=== PATIENT | male | born 1980 | race Caucasian/White ===

== ENCOUNTER 2019-12-06 12:11 | Emergency (ER) | payer SELFPAY ==
[~2019-12-06] VITALS: Ht 177 cm; Wt 78.6 kg
--- NOTE | 2019-12-06 13:19 | ED GI ---
General Chief Complaint: Rect Problems Stated Complaint: RECTAL BLEEDING-HEMORRHOIDS Nursing Triage Note: COMPLAINS OF HEMORRHOIDS X1 YEAR BUT IS NOW HAVING BLOOD WITH EACH BM. COMPLAINS OF PAIN WITH HE HEMORRHOIDS. HAS NOT TAKEN ANYTHING FOR THE PAIN. Sepsis Screen: No Definite Risk Source of Information: Patient Exam Limitations: No Limitations History of Present Illness Date Seen by Provider: Dec 06, 2019 Time Seen by Provider: 12:26 Initial Comments This 39-year-old gentleman presents to the emergency room with complaints of rectal bleeding. Anal irritation. He believes he has hemorrhoids. There is a masslike structure that causes him discomfort when he wipes. He has had streaking with bowel movements and pain with bowel movements for about a year. Symptoms worsened today and he had a significant amount of blood in his underwear. He came to the emergency room at the urging of his employer. He has not yet had a medical evaluation for this problem. He denies abdominal pain. Allergies and Home Medications Allergies Coded Allergies: No Known Drug Allergies (Unverified , 12/06/19) Home Medications Docusate Sodium 100 Mg Capsule, 100 MG PO BID Prescribed by: JAN RAMÍREZ on 12/06/19 1339 Hydrocortisone 30 Gm Cream..g., 30 GM RC QID Prescribed by: JAN RAMÍREZ on 12/06/19 1339 Hydrocortisone Acetate 25 Mg Supp.rect, 25 MG RC QID Prescribed by: JAN RAMÍREZ on 12/06/19 1339 Patient Home Medication List Home Medication List Reviewed: Yes Review of Systems Review of Systems Constitutional: no symptoms reported EENTM: No Symptoms Reported Respiratory: No Symptoms Reported Cardiovascular: No Symptoms Reported Gastrointestinal: See HPI Genitourinary: No Symptoms Reported Musculoskeletal: no symptoms reported Skin: no symptoms reported Psychiatric/Neurological: No Symptoms Reported Endocrine: No Symptoms Reported Hematologic/Lymphatic: No Symptoms Reported Past Tdzwhwv-Aacibt-Diwccl Hx Past Med/Social Hx: Reviewed Nursing Past Med/Soc Hx Patient Social History Alcohol Use: Denies Use Recreational Drug Use: No Smoking Status: Current Everyday Smoker Recent Foreign Travel: No Contact w/Someone Who Travel: No Recent Infectious Disease Expo: No Past Medical History Surgeries: Yes (DENTAL) Respiratory: No Cardiac: No Neurological: No Genitourinary: No Gastrointestinal: No Musculoskeletal: No Endocrine: No HEENT: No Cancer: No Psychosocial: No Integumentary: No Physical Exam Vital Signs Vital Signs - First Documented 12/06/19 12:15 Temp 37.0 Pulse 83 Resp 16 B/P (MAP) 144/95 (111) Pulse Ox 99 O2 Delivery Room Air Capillary Refill : Less Than 3 Seconds Height/Weight/BMI Height: '" Weight: lbs. oz. kg; 25.00 BMI Method: General Appearance: WD/WN, no apparent distress HEENT: normal ENT inspection Neck: normal inspection Respiratory: lungs clear, normal breath sounds, no respiratory distress Cardiovascular: regular rate, rhythm, no edema, no murmur Gastrointestinal: normal bowel sounds, non tender, soft Rectal: hemorrhoids, other (circumferential edema around the anus with a large central mass, possibly hemorrhoid, possibly thrombosed. 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 Dr. Chavez was consulted and will present to the ER to personally evaluate the patient. Progress Note #2: Progress Note Dr. Chavez evaluated the patient and suspected prolapsed internal hemorrhoid. He was able to manually reduce the hemorrhoid. This improved pain for the patient. We discussed treatment plan which will likely involve surgery after calming down the acute inflammatory stage. Departure Impression Primary Impression: Prolapsed internal hemorrhoids Additional Impression: Rectal bleeding Disposition: 01 HOME, SELF-CARE Condition: Improved Departure-Patient Inst. Decision time for Depature: 13:25 Referrals: ABDIRAHMAN CHAVEZ DO NO,LOCAL PHYSICIAN (PCP) Primary Care Physician Patient Instructions: Hemorrhoids Add. Discharge Instructions: Keep your stool soft by drinking plenty of clear liquids and eating a high fiber diet. You may also use the stool softeners as prescribed. Reduce the hemorrhoids when they prolapse. Use the hydrocortisone cream or suppositories 4 times a day to reduce inflammation. You may use the lidocaine jelly for topical pain relief. You may also use Tylenol (acetaminophen) up to 1000 mg every 6 hours as needed and ibuprofen up to 600 mg every 6 hours as needed. Return to the emergency room if you have worsening symptoms despite treatment or if you develop new symptoms such as fever. Contact Dr. Chavez's office to schedule an appointment. Please call today and inform them Dr. Chavez instructed you to be seen within 1-2 weeks. All discharge instructions reviewed with patient and/or family. Voiced understanding. Scripts Docusate Sodium (Colace) 100 Mg Capsule 100 MG PO BID, #30 CAP Prov: JAN LEE MD 12/06/19 Hydrocortisone Acetate (Anusol-Hc) 25 Mg Supp.rect 25 MG RC QID, #30 SUPP.RECT Prov: JAN LEE MD 12/06/19 Hydrocortisone (Anusol-Hc) 30 Gm Cream..g. 30 GM RC QID, #1 TUBE 3 Refills Prov: JAN LEE MD 12/06/19 Copy Copies To 1: ABDIRAHMAN CHAVEZ JOSHUA T MD Dec 06, 2019 13:19
--- NOTE | 2019-12-06 13:25 | NUR ---
DR MORALES HERE TO SEE PT.
[2019-12-06] MEDS ORDERED: HYDR30CR71 RC (13:39)
[2019-12-06] MEDS ORDERED: DOCU-143 PO (13:39)
[2019-12-06] MEDS ORDERED: HYDR25SU28 RC (13:39)
[2019-12-06 13:50] VITALS: BP 139/92
--- NOTE | 2019-12-07 22:16 | Consultation - Surgery ---
History of Present Illness History of Present Illness Patient Consulted On(abram/time) 12/06/19 13:31 Date Seen by Provider: Dec 06, 2019 Time Seen by Provider: 13:31 History of Present Illness Consult requested by Dr. Urbano for hemorrhoids, evaluated in ER. Patient is a 39 year old male who has had hemorrhoid issues for about a year. Will have bleeding off and on, now pretty regularly. Today increasing pain in rectal area and bleeding that has soaked through clothing. Pain usually improves when reduced. Bowel movements worsens pain/hemorrhoid. Patient has not has any type of evaluation for them before. Patient pain moderate to severe. Bright red bleeding. No abdominal pain. Denies n/v fever sweats chills shortness of breath or chest pain. Allergies and Home Medications Allergies Coded Allergies: No Known Drug Allergies (Unverified , 12/06/19) Home Medications Docusate Sodium 100 Mg Capsule, 100 MG PO BID Prescribed by: JAN RAMÍREZ on 12/06/19 1339 Hydrocortisone 30 Gm Cream..g., 30 GM RC QID Prescribed by: JAN RAMÍREZ on 12/06/19 1339 Hydrocortisone Acetate 25 Mg Supp.rect, 25 MG RC QID Prescribed by: JAN RAMÍREZ on 12/06/19 1339 Patient Home Medication List Home Medication List Reviewed: Yes Past Cttyxgu-Jqaxmx-Jeeowj Hx Patient Social History Alcohol Use: Denies Use Recreational Drug Use: No Smoking Status: Current Everyday Smoker Recent Foreign Travel: No Contact w/Someone Who Travel: No Recent Infectious Disease Expo: No Surgeries History of Surgeries: Yes (DENTAL) Respiratory History of Respiratory Disorde: No Cardiovascular History of Cardiac Disorders: No Neurological History of Neurological Disord: No Genitourinary History of Genitourinary Disor: No Gastrointestinal History of Gastrointestinal Di: No Musculoskeletal History of Musculoskeletal Dis: No Endocrine History of Endocrine Disorders: No HEENT History of HEENT Disorders: No Cancer History of Cancer: No Psychosocial History of Psychiatric Problem: No Integumentary History of Skin or Integumenta: No Reviewed Nursing Assessment Reviewed/Agree w Nursing PMH: Yes Family Medical History Significant Family History: No Pertinent Family Hx Review of Systems-General Constitutional: No chills, No diaphoresis EENTM: No ear discharge, No hearing loss, No ear pain, No blurred vision, No double vision Respiratory: No cough, No dyspnea on exertion Cardiovascular: No chest pain, No edema Gastrointestinal: No abdominal pain, No nausea, No vomiting; other (blood per rectum) Musculoskeletal: No back pain, No joint pain Skin: No change in color, No change in hair/nails Psychiatric/Neurological: Denies Anxiety, Denies Depressed, Denies Emotional Problems Physical Exam-General Problems Physical Exam Vital Signs Vital Signs - First Documented 12/06/19 12:15 Temp 37.0 Pulse 83 Resp 16 B/P (MAP) 144/95 (111) Pulse Ox 99 O2 Delivery Room Air Capillary Refill : Less Than 3 Seconds General Appearance: no apparent distress HEENT: PERRL/EOMI, normal ENT inspection, TMs normal, pharynx normal Neck: non-tender, full range of motion, supple, normal inspection Respiratory: chest non-tender, no respiratory distress, no accessory muscle use Cardiovascular: regular rate, rhythm Gastrointestinal: non tender, soft Rectal: hemorrhoids (large prolapsed right anterior hemorrhoid, blood on exam no palapable mass, difficult but was able to reduce) Back: normal inspection, no CVA tenderness, no vertebral tenderness Extremities: normal range of motion, non-tender, normal inspection, no pedal edema, no calf tenderness Neurologic/Psychiatric: career development manager II-XII nml as tested, no motor/sensory deficits, alert, normal mood/affect, oriented x 3 Skin: normal color, warm/dry Lymphatic: no adenopathy Assessment/Plan Assessment/Plan Assessment/Plan blood per rectum prolapsed internal hemorrhoid bleeding appears to be coming from prolapsed internal hemorrhoid we were able to reduce and patient pain improved after reducing. patient instructed on how to keep it reduced soft stools and recommend short term hydrocortisone cream/suppository to get inflammation down, keep stools soft and area clean and dry. will have f/u in 1-2 weeks any worsening of symptoms be seen at that time. will need surgical intervention we discussed and he understands. ABDIRAHMAN MORALES DO Dec 07, 2019 22:16
== END 2019-12-06 13:50 | disposition home or self-care (01) ==
LOC: ER 12:14
DX: K64.8 Other hemorrhoids (principal); F17.200 Nicotine dependence, unspecified, uncomplicated; Z79.52 Long term (current) use of systemic steroids
CPT/HCPCS: 99281